=== PATIENT | female | born 1990 | race Caucasian/White ===

== ENCOUNTER 2021-02-07 17:43 | Day surgery (SDC) | payer BC, SELFPAY ==
[2021-02-07] MEDS ORDERED: hydrALAZINE 20 MG/ML VIAL SLOW IVP PRN (18:55)
== END 2021-02-07 19:20 | disposition home or self-care (01) ==
LOC: CSHLD/OP 17:43
PROVIDERS: ATTEND Obstetrics & Gynecology
DX: O26.853 Spotting complicating pregnancy, third trimester (principal); O99.891 Other specified diseases and conditions complicating pregnancy; R03.0 Elevated blood-pressure reading, without diagnosis of hypertension; O30.043 Twin pregnancy, dichorionic/diamniotic, third trimester; O99.283 Endocrine, nutritional and metabolic diseases complicating pregnancy, third trimester; E03.9 Hypothyroidism, unspecified; O99.353 Diseases of the nervous system complicating pregnancy, third trimester; M06.9 Rheumatoid arthritis, unspecified; O09.813 Supervision of pregnancy resulting from assisted reproductive technology, third trimester; Z3A.29 29 weeks gestation of pregnancy; Z79.899 Other long term (current) drug therapy
CPT/HCPCS: 99283

== ENCOUNTER 2021-02-25 00:22 | Inpatient (IN) | payer BC, SELFPAY ==
[2021-02-25] MEDS ORDERED: Magnesium 2 GM/50 ML BAG (IN WATER) ONE (00:35)
[2021-02-25] MEDS: Magnesium Sulfate 20 gm/500 ml 20 GM/500 ML BAG IVPB SCH ×2 (00:57→19:09)
[2021-02-25] MEDS ORDERED: Calcium Gluc 4.6 MEQ/10 ML (100 MG/ML) SLOW IVP PRN (00:58)
[2021-02-25] MEDS ORDERED: hydrALAZINE 20 MG/ML VIAL SLOW IVP PRN ×3 (00:58→01:06)
[2021-02-25] MEDS ORDERED: Magnesium Sulfate 20 GM/WATER 500 ML BAG IVPB SCH (01:00)
[2021-02-25] MEDS ORDERED: hydrALAZINE 20 MG/ML VIAL ONE (01:04)
[2021-02-25] MEDS ORDERED: Magnesium Sulfate 20 gm/500 ml 20 GM/500 ML BAG ONE (01:04)
[2021-02-25] MEDS ORDERED: Betamet Acet/Betamet Na Ph 30 MG/5 ML VIAL ONE (01:05)
[2021-02-25] MEDS: Betamet Acet/Betamet Na Ph 30 MG/5 ML VIAL IM SCH ×2 (01:13→13:36)
[2021-02-25 01:30] LABS: Hemoglobin 14.2 g/dL (12.0-15.5); Mean Corpuscular HGB CONC 35.9 g/dL (32.0-36.0); Mean Corpuscular Hemoglobin 33.1 pg (27.0-33.0); Mean Corpuscular Volume 92.1 fl (81.6-98.3); Mean Platelet Volume 12.3 fl (7.4-10.4); Platelet Count 200 10x3/uL (150-450); RBC Distribution Width 12.4 % (11.5-14.5); Red Blood Cell (RBC) Count 4.29 10x6/uL (3.90-5.03); White Blood Cell (WBC) Count 10.5 10x3/uL (3.5-10.5)
[2021-02-25] MEDS ORDERED: NIFEdipine XL 30 MG TAB PO SCH ×2 (01:30→09:00)
[2021-02-25 01:39] VITALS: BMI 32.1
[2021-02-25 01:49] LABS: ALT (SGPT) 61 U/L (8-55); AST (SGOT) 48 U/L (5-34); Albumin 3.3 g/dL (3.5-5.0); Alkaline Phosphatase 163 U/L (40-110); Anion Gap 16 mmol/L (10-20); BUN (Urea Nitrogen) 6 mg/dL (7.0-18.7); Bilirubin, Total 0.8 mg/dL (0.2-1.2); Calc. Creatinine Clearance 187 mL/min (70-130); Calcium 9.2 mg/dL (7.8-10.44); Carbon Dioxide 19 mmol/L (22-29); Chloride 108 mmol/L (98-107); Globulin 2.9 g/dL (2.4-3.5); Glucose 82 mg/dL (70-105); Potassium 3.6 mmol/L (3.5-5.1); Protein, Total 6.2 g/dL (6.0-8.3); Sodium 139 mmol/L (136-145); Uric Acid 6.1 mg/dL (2.6-6.0)
[2021-02-25 02:06] LABS: Hep B Surf Ag Non-Reactive S/CO (NonReactive)
[2021-02-25 02:14] LABS: HBSAg Index 0.14 S/CO (0-0.99)
[2021-02-25 02:15] LABS: Syphilis Antibody Nonreactive (Nonreactive); Syphilis Antibody Index 0.08 S/CO (<1.00 Non-Reactive)
[2021-02-25] MEDS ORDERED: Butorphanol Tartrate 1 MG/ML VIAL SLOW IVP SCH (03:45)
[2021-02-25] MEDS: Ondansetron PF 4 MG/2 ML Vial IVP PRN (04:10)
[2021-02-25 04:15] LABS: SARS-CoV-2 NAA Rapid Test Not Detected (NotDetected)
[2021-02-25] MEDS ORDERED: Furosemide 20 MG/2 ML VIAL SLOW IVP SCH (05:30)
[2021-02-25] MEDS ORDERED: Acetaminophen 500 MG TAB PO PRN (06:01)
[2021-02-25] MEDS: Levothyroxine Sodium 100 MCG TAB PO SCH (06:24)
[2021-02-25] MEDS ORDERED: Labetalol HCl 100 MG/20 ML VIAL ONE (07:57)
[2021-02-25] MEDS ORDERED: Labetalol HCl 100 MG/20 ML VIAL SLOW IVP PRN (08:00)
[2021-02-25 09:18] LABS: Hemoglobin 14.3 g/dL (12.0-15.5); Mean Corpuscular HGB CONC 35.6 g/dL (32.0-36.0); Mean Corpuscular Hemoglobin 33.3 pg (27.0-33.0); Mean Corpuscular Volume 93.5 fl (81.6-98.3); Mean Platelet Volume 12.1 fl (7.4-10.4); Platelet Count 201 10x3/uL (150-450); RBC Distribution Width 12.4 % (11.5-14.5); White Blood Cell (WBC) Count 12.2 10x3/uL (3.5-10.5)
[2021-02-25 09:27] LABS: ALT (SGPT) 68 U/L (8-55); AST (SGOT) 58 U/L (5-34); Albumin 3.4 g/dL (3.5-5.0); Alkaline Phosphatase 166 U/L (40-110); Anion Gap 19 mmol/L (10-20); BUN (Urea Nitrogen) 6 mg/dL (7.0-18.7); Bilirubin, Total 1.1 mg/dL (0.2-1.2); Calc. Creatinine Clearance 176 mL/min (70-130); Calcium 8.5 mg/dL (7.8-10.44); Carbon Dioxide 15 mmol/L (22-29); Chloride 105 mmol/L (98-107); Globulin 3.1 g/dL (2.4-3.5); Glucose 113 mg/dL (70-105); Potassium 3.6 mmol/L (3.5-5.1); Protein, Total 6.5 g/dL (6.0-8.3); Sodium 135 mmol/L (136-145)
[2021-02-25] MEDS ORDERED: HYDROcodone/Acetaminophen 5/325 mg Tablet PO PRN ×2 (12:10)
[2021-02-25] MEDS ORDERED: Lidocaine 1% (PF) 30 ML VIAL SC PRN (12:10)
[2021-02-25] MEDS ORDERED: Diphenoxylate HCl/Atropine Tablet PO PRN ×2 (12:10)
[2021-02-25] MEDS ORDERED: Carboprost 250 MCG/ML AMP IM PRN (12:10)
[2021-02-25] MEDS ORDERED: Misoprostol 200 MCG TAB PR PRN (12:10)
[2021-02-25] MEDS ORDERED: Ibuprofen 800 MG TAB PO PRN (12:10)
[2021-02-25] MEDS ORDERED: Penicillin G Potassium 5 MILL.UNITS in Sodium Chloride 0.9% 100 ML IVPB SCH (12:30)
[2021-02-25] MEDS ORDERED: NS w/ Oxytocin 30 units 500 ML IVPB PRN (12:33)
[2021-02-25] MEDS ORDERED: NS w/ Oxytocin 30 units 500 ML IVPB SCH (12:45)
[2021-02-25] MEDS: Penicillin G 2.5 MILL.units 2.5 MILL.UNITS in Premix Bag 1 BAG IVPB SCH ×2 (18:09→21:45)
[2021-02-25] MEDS ORDERED: Fentanyl 4 mcg/Bup 0.1% Cadd 100 ML ONE (18:36)
[2021-02-25] MEDS ORDERED: PHENYLEPHRINE-NS 100 MCG/ML 10 ML SYRINGE ONE ×2 (19:28→20:25)
[2021-02-25] MEDS ORDERED: Esmolol 100 MG/10 ML VIAL ONE (19:33)
[2021-02-25] MEDS ORDERED: ePHEDrine Sulfate 50 MG/10 ML VIAL ONE (20:26)
[2021-02-25 20:33] LABS: Hemoglobin 13.4 g/dL (12.0-15.5); Mean Corpuscular HGB CONC 35.3 g/dL (32.0-36.0); Mean Corpuscular Hemoglobin 33.1 pg (27.0-33.0); Mean Corpuscular Volume 93.8 fl (81.6-98.3); Platelet Count 227 10x3/uL (150-450); RBC Distribution Width 12.8 % (11.5-14.5); Red Blood Cell (RBC) Count 4.05 10x6/uL (3.90-5.03); White Blood Cell (WBC) Count 15.7 10x3/uL (3.5-10.5)
[2021-02-25 20:45] LABS: ALT (SGPT) 85 U/L (8-55); AST (SGOT) 91 U/L (5-34); Albumin 3.1 g/dL (3.5-5.0); Alkaline Phosphatase 154 U/L (40-110); Anion Gap 19 mmol/L (10-20); BUN (Urea Nitrogen) 4 mg/dL (7.0-18.7); Bilirubin, Total 1.1 mg/dL (0.2-1.2); Calc. Creatinine Clearance 160 mL/min (70-130); Calcium 7.8 mg/dL (7.8-10.44); Carbon Dioxide 15 mmol/L (22-29); Chloride 104 mmol/L (98-107); Globulin 2.9 g/dL (2.4-3.5); Glucose 123 mg/dL (70-105); Potassium 3.9 mmol/L (3.5-5.1); Sodium 134 mmol/L (136-145)
[2021-02-26] MEDS ORDERED: Eucerin (Mineral Oil/Petrolatum,White) 30 gm Jar TOP PRN (00:55)
[2021-02-26] MEDS ORDERED: Lactated Ringer's 500 ML IV PRN (00:55)
[2021-02-26] MEDS ORDERED: Promethazine HCl 25 MG/ML VIAL IM PRN (00:55)
[2021-02-26] MEDS ORDERED: Naloxone HCl 0.4 mg/ml Vial IVP PRN ×2 (00:55)
[2021-02-26] MEDS ORDERED: Ondansetron PF 4 MG/2 ML Vial IVP PRN (00:55)
[2021-02-26] MEDS ORDERED: ePHEDrine 50 MG/ML VIAL SLOW IVP PRN (00:55)
[2021-02-26] MEDS ORDERED: Acetaminophen 325 MG TAB PO PRN (00:55)
[2021-02-26] MEDS ORDERED: diphenhydrAMINE 50 MG/ML VIAL IVP PRN (00:55)
[2021-02-26] MEDS ORDERED: Fentanyl 4 mcg/Bupivacaine 0.1% Cassette 100 ML EPIDURAL SCH (01:00)
[2021-02-26] MEDS ORDERED: Communication Order-Pharmacy FS SCH (01:00)
[2021-02-26] MEDS ORDERED: Hydrocerin (Eucerin) Cream 120 gm Jar TOP PRN (01:01)
[2021-02-26] MEDS ORDERED: Morphine PF 10 MG/10 ML VIAL ONE (02:13)
[2021-02-26] MEDS ORDERED: hydrALAZINE 20 MG/ML VIAL SLOW IVP PRN (02:41)
[2021-02-26] MEDS ORDERED: Benzocaine-Menthol 82.5 ML CAN TOP PRN (02:41)
[2021-02-26] MEDS ORDERED: Bisacodyl 10 MG SUPP PR PRN (02:41)
[2021-02-26] MEDS ORDERED: Milk Of Magnesia 30 ML UDCUP PO PRN (02:41)
[2021-02-26] MEDS ORDERED: Lanolin Ointment 7 GM TUBE TOP PRN (02:41)
[2021-02-26] MEDS ORDERED: NS / Oxytocin 40 units/1000ml 1,000 ML IV SCH (02:45)
[2021-02-26 03:32] LABS: Hemoglobin 11.8 g/dL (12.0-15.5); Mean Corpuscular HGB CONC 35.2 g/dL (32.0-36.0); Mean Corpuscular Hemoglobin 33.1 pg (27.0-33.0); Mean Corpuscular Volume 94.1 fl (81.6-98.3); Mean Platelet Volume 11.9 fl (7.4-10.4); Platelet Count 225 10x3/uL (150-450); RBC Distribution Width 12.9 % (11.5-14.5); Red Blood Cell (RBC) Count 3.56 10x6/uL (3.90-5.03); White Blood Cell (WBC) Count 24.1 10x3/uL (3.5-10.5)
[2021-02-26] MEDS ORDERED: Tranexamic Acid 1,000 MG/10 ML VIAL ONE (03:36)
[2021-02-26] MEDS ORDERED: Ondansetron PF 4 MG/2 ML Vial ONE (03:43)
[2021-02-26] MEDS: Ondansetron PF 4 MG/2 ML Vial IVP PRN (03:45)
[2021-02-26] MEDS ORDERED: Tranexamic Acid 1,000 MG in Sodium Chloride 0.9% 250 ML 250 ML IVPB SCH (03:45)
[2021-02-26] MEDS: Magnesium Sulfate 20 gm/500 ml 20 GM/500 ML BAG IVPB SCH (05:10)
[2021-02-26] MEDS: Ferrous Sulfate 325 MG TAB PO SCH (08:31)
[2021-02-26] MEDS: Docusate Calcium (SURFAK) 240 MG CAP PO SCH ×2 (08:31→21:51)
[2021-02-26] MEDS: Levothyroxine Sodium 100 MCG TAB PO SCH (08:31)
[2021-02-26] MEDS: Ibuprofen 800 MG TAB PO SCH ×2 (08:32→21:51)
[2021-02-26] MEDS ORDERED: Prenatal Vitamin 1 TAB PO SCH (09:00)
[2021-02-26] MEDS ORDERED: Adacel (T-DAP) 0.5 ML SYRINGE IM ONE (09:00)
[2021-02-26 09:11] LABS: Hemoglobin 10.1 g/dL (12.0-15.5); Mean Corpuscular HGB CONC 35.1 g/dL (32.0-36.0); Mean Corpuscular Hemoglobin 33.7 pg (27.0-33.0); Mean Platelet Volume 11.6 fl (7.4-10.4); Platelet Count 195 10x3/uL (150-450); RBC Distribution Width 12.7 % (11.5-14.5); White Blood Cell (WBC) Count 24.4 10x3/uL (3.5-10.5)
[2021-02-26 09:28] LABS: ALT (SGPT) 102 U/L (8-55); AST (SGOT) 114 U/L (5-34); Albumin 2.5 g/dL (3.5-5.0); Alkaline Phosphatase 119 U/L (40-110); Anion Gap 13 mmol/L (10-20); BUN (Urea Nitrogen) 4 mg/dL (7.0-18.7); Bilirubin, Total 0.8 mg/dL (0.2-1.2); Calc. Creatinine Clearance 176 mL/min (70-130); Calcium 6.8 mg/dL (7.8-10.44); Carbon Dioxide 20 mmol/L (22-29); Chloride 105 mmol/L (98-107); Globulin 2.2 g/dL (2.4-3.5); Glucose 134 mg/dL (70-105); Magnesium 5.6 mg/dL (1.6-2.6); Potassium 3.9 mmol/L (3.5-5.1); Protein, Total 4.7 g/dL (6.0-8.3); Sodium 134 mmol/L (136-145)
[2021-02-26] MEDS ORDERED: ePHEDrine Sulfate 50 MG/10 ML VIAL ONE (19:54)
[2021-02-26] MEDS ORDERED: Bupivacaine PF 0.5% 30 ML VIAL ONE (19:54)
[2021-02-26] MEDS ORDERED: traMADol HCl 50 MG TAB PO PRN ×2 (21:37)
[2021-02-27] MEDS ORDERED: Lanolin Ointment 7 GM TUBE TOP PRN (05:03)
[2021-02-27] MEDS ORDERED: HYDROcodone/Acetaminophen 5/325 mg Tablet PO PRN ×2 (05:03)
[2021-02-27] MEDS ORDERED: Preparation H Ointment 28 GM TUBE PR PRN (05:03)
[2021-02-27] MEDS ORDERED: Bisacodyl 10 MG SUPP PR PRN (05:03)
[2021-02-27] MEDS ORDERED: Milk Of Magnesia 30 ML UDCUP PO PRN (05:03)
[2021-02-27] MEDS ORDERED: Ondansetron PF 4 MG/2 ML Vial IVP PRN (05:03)
[2021-02-27] MEDS ORDERED: Promethazine HCl 25 MG/ML VIAL IM PRN (05:03)
[2021-02-27] MEDS ORDERED: Benzocaine-Menthol 82.5 ML CAN TOP PRN (05:03)
[2021-02-27] MEDS ORDERED: Misoprostol 200 MCG TAB VAG PRN (05:03)
[2021-02-27] MEDS ORDERED: hydrALAZINE 20 MG/ML VIAL SLOW IVP PRN (05:03)
[2021-02-27] MEDS ORDERED: NS / Oxytocin 40 units/1000ml 1,000 ML IV SCH (05:15)
[2021-02-27] MEDS: Levothyroxine Sodium 100 MCG TAB PO SCH (05:46)
[2021-02-27] MEDS: Ibuprofen 800 MG TAB PO SCH ×4 (05:46→21:26)
[2021-02-27 06:49] LABS: Hemoglobin 8.6 g/dL (12.0-15.5); Mean Corpuscular HGB CONC 34.7 g/dL (32.0-36.0); Mean Corpuscular Hemoglobin 33.2 pg (27.0-33.0); Mean Corpuscular Volume 95.8 fl (81.6-98.3); Mean Platelet Volume 11.3 fl (7.4-10.4); Platelet Count 152 10x3/uL (150-450); RBC Distribution Width 13.1 % (11.5-14.5); Red Blood Cell (RBC) Count 2.59 10x6/uL (3.90-5.03); White Blood Cell (WBC) Count 15.7 10x3/uL (3.5-10.5)
[2021-02-27 07:11] LABS: ALT (SGPT) 75 U/L (8-55); AST (SGOT) 61 U/L (5-34); Albumin 2.5 g/dL (3.5-5.0); Alkaline Phosphatase 107 U/L (40-110); Anion Gap 12 mmol/L (10-20); BUN (Urea Nitrogen) 6 mg/dL (7.0-18.7); Bilirubin, Total 0.4 mg/dL (0.2-1.2); Calc. Creatinine Clearance 187 mL/min (70-130); Calcium 7.1 mg/dL (7.8-10.44); Carbon Dioxide 21 mmol/L (22-29); Chloride 109 mmol/L (98-107); Globulin 1.8 g/dL (2.4-3.5); Glucose 86 mg/dL (70-105); Potassium 3.9 mmol/L (3.5-5.1); Protein, Total 4.3 g/dL (6.0-8.3); Sodium 138 mmol/L (136-145)
[2021-02-27] MEDS: Penicillin G 2.5 MILL.units 2.5 MILL.UNITS in Premix Bag 1 BAG IVPB SCH ×2 (07:58→07:59)
[2021-02-27] MEDS: Ferrous Sulfate 325 MG TAB PO SCH ×3 (07:59→17:23)
[2021-02-27] MEDS: diphenhydrAMINE 25 MG CAP PO PRN (08:37)
[2021-02-27] MEDS: Docusate Calcium (SURFAK) 240 MG CAP PO SCH ×2 (08:37→21:26)
[2021-02-27] MEDS: Prenatal Vitamin 1 TAB PO SCH (08:37)
[2021-02-27] MEDS ORDERED: Measles/Mumps/Rubella 10 MCG/0.5 ML VIAL SC ONE (09:00)
[2021-02-27] MEDS ORDERED: Adacel (T-DAP) 0.5 ML SYRINGE IM ONE (09:00)
[2021-02-27] MEDS ORDERED: Varicella virus, LIVE 0.5 ML VIAL SC ONE (09:00)
[2021-02-28] MEDS ORDERED: cloNIDine 0.1 MG TAB PO SCH (01:15)
[2021-02-28] MEDS: Ibuprofen 800 MG TAB PO SCH ×3 (05:26→23:09)
[2021-02-28] MEDS: Prenatal Vitamin 1 TAB PO SCH (08:49)
[2021-02-28] MEDS: Ferrous Sulfate 325 MG TAB PO SCH ×2 (08:49→17:37)
[2021-02-28] MEDS: NIFEdipine XL 30 MG TAB PO SCH (08:49)
[2021-02-28] MEDS: Docusate Calcium (SURFAK) 240 MG CAP PO SCH ×2 (08:50→23:09)
[2021-02-28] MEDS ORDERED: Levothyroxine Sodium 100 MCG TAB PO SCH (09:30)
[2021-03-01] MEDS: Labetalol HCl 100 MG/20 ML VIAL SLOW IVP PRN ×2 (00:54→13:40)
[2021-03-01] MEDS: Ibuprofen 800 MG TAB PO SCH ×3 (05:27→22:00)
[2021-03-01] MEDS: Levothyroxine Sodium 100 MCG TAB PO SCH (05:33)
[2021-03-01] MEDS: Ferrous Sulfate 325 MG TAB PO SCH ×2 (08:35→22:00)
[2021-03-01] MEDS: Docusate Calcium (SURFAK) 240 MG CAP PO SCH ×2 (08:35→22:00)
[2021-03-01] MEDS: NIFEdipine XL 30 MG TAB PO SCH ×3 (08:35→22:00)
[2021-03-01] MEDS: Prenatal Vitamin 1 TAB PO SCH (08:35)
[2021-03-01] MEDS: Losartan 25 MG TAB PO SCH (10:08)
[2021-03-01] MEDS: diphenhydrAMINE 25 MG CAP PO PRN (22:22)
[2021-03-02] MEDS: Levothyroxine Sodium 100 MCG TAB PO SCH (05:35)
[2021-03-02] MEDS: Ibuprofen 800 MG TAB PO SCH ×2 (05:35→14:36)
[2021-03-02] MEDS: Docusate Calcium (SURFAK) 240 MG CAP PO SCH (07:49)
[2021-03-02] MEDS: Ferrous Sulfate 325 MG TAB PO SCH (07:49)
[2021-03-02] MEDS: Prenatal Vitamin 1 TAB PO SCH (07:49)
[2021-03-02] MEDS: Losartan 25 MG TAB PO SCH (07:50)
[2021-03-02] MEDS: NIFEdipine XL 30 MG TAB PO SCH (07:50)
[2021-03-02] MEDS ORDERED: Losartan 25 MG TAB PO SCH (10:00)
[2021-03-02 12:43] VITALS: BP 144/83; TEMP 98.5
[2021-03-02] MEDS: diphenhydrAMINE 25 MG CAP PO PRN (14:37)
== END 2021-03-02 14:50 | disposition home or self-care (01) | DRG 807 ==
LOC: CSHERS 00:22 → CSHLD 01:00 → CSHPP 02-27 06:10
PROVIDERS: ADMIT Obstetrics & Gynecology; ATTEND Obstetrics & Gynecology
PROC: 3E033VJ Introduction of Other Hormone into Peripheral Vein, Percutaneous Approach (ICD-10-PCS; 2021-02-25)
PROC: 10E0XZZ Delivery of Products of Conception, External Approach (ICD-10-PCS; principal; 2021-02-26)
PROC: 0KQM0ZZ Repair Perineum Muscle, Open Approach (ICD-10-PCS; 2021-02-26)
PROC: 10D17Z9 Manual Extraction of Products of Conception, Retained, Via Natural or Artificial Opening (ICD-10-PCS; 2021-02-26)
PROC: 10907ZC Drainage of Amniotic Fluid, Therapeutic from Products of Conception, Via Natural or Artificial Opening (ICD-10-PCS; 2021-02-26)
DX: O14.14 Severe pre-eclampsia complicating childbirth (principal); Z37.2 Twins, both liveborn; Z3A.31 31 weeks gestation of pregnancy; Z20.822 Contact with and (suspected) exposure to COVID-19; O30.043 Twin pregnancy, dichorionic/diamniotic, third trimester; O99.284 Endocrine, nutritional and metabolic diseases complicating childbirth; E03.9 Hypothyroidism, unspecified; Z79.899 Other long term (current) drug therapy; Z79.890 Hormone replacement therapy; Z79.82 Long term (current) use of aspirin; O70.1 Second degree perineal laceration during delivery; O72.2 Delayed and secondary postpartum hemorrhage; O90.81 Anemia of the puerperium; D64.9 Anemia, unspecified
CPT/HCPCS: 36415; 51702; 71045; 76815; 80053; 82570; 83735; 84156; 84550; 85027; 86780; 86850; 86900; 86901; 87081; 87340; 88307; 99285; J0360; J0595; J0702; J1940; J2274; J2405; J2540; J2590; J3475; J3490; J7050; Q0163; S0020; U0002